=== PATIENT | female | born 2000 | race Caucasian/White ===

== ENCOUNTER 2022-06-10 05:28 | Emergency (ER) | payer OTHER, SELFPAY ==
--- NOTE | ~2022-06-10 | CT_ITS ---
CT IAC/mastoids BI w con DATE: 06/10/2022 06:46 INDICATION: Left mastoid process tenderness. TECHNIQUE: Axial images through the petrous temporal bones. Sagittal and coronal reconstructions. Exam dose: 341.09 mGy-cm total exam DLP. COMPARISON: None FINDINGS: There is an opacified posteromedial left ethmoid air cell. The included paranasal sinuses a re otherwise unremarkable. The right mastoid air cells are well-developed and aerated, without effusions. Patchy mild effusions are noted within a minority of left mastoid air cells, which are otherwise norm ally developed and aerated. No mastoid bone destruction is noted on either side. There is extensive asymmetric soft tissue thickening of the left external auditory canal extending to the tympanic membrane, which may be due to prominent cerumen accumulation or soft tissue mass. There is some asymmetric soft tissue stranding within the left middle ears cavity, which suggests chr onic left otitis media. The auditory ossicles appear intact bilaterally. Right middle ear cavity appears normal. Inner ear apparatus including cochlea, vestibules, semicircular canals, facial nerve canal appear nor mal and symmetric. The internal auditory canals appear symmetric in size and shape. IMPRESSION: Mild patchy left mastoid air cell effusions Prominent asymmetric soft tissue thickening within the left external auditory canal, which may be due to cerumen accumulation or soft tissue mass Likely chronic left otitis media Reviewed, dictated and finalized at [facility] Reviewed, dictated and finalized at [facility] IMPRESSION: Mild patchy left mastoid air cell effusions Prominent asymmetric soft tissue thickening within the left external auditory c anal, which may be due to cerumen accumulation or soft tissue mass Likely chronic left otitis media
[2022-06-10 05:33] VITALS: BP 122/75; PULSE 76; RESP 14; TEMP 36.6; O2SAT 99
--- NOTE | 2022-06-10 05:42 | ED.GENADULT ---
HPI - General Adult General Chief complaint: Ear <Yaya Roberts MD - Last Filed: 06/10/22 07:44> Stated complaint: left ear pain <Yaya Roberts MD - Last Filed: 06/10/22 07:44> Time Seen by Provider: 06/10/22 05:40 <Yaya Roberts MD - Last Filed: 06/10/22 07:44> History of Present Illness HPI narrative: Patient is a 22-year-old female presents emerged department with chief complaint of left ear and mastoid process pain. Patient reports that she was seen in urgent care several days ago started on Augmentin and Ciprodex drops for her left ear. Patient reports that in the last 24 hours she has had decreased hearing out of her left ear and is noticed the pain has gotten worse. Patient reports that it hurts whenever she opens her jaw and whenever she chews. Patient denies shortness of breath <Yaya Roberts MD - Last Filed: 06/10/22 07:44> Related Data Home medications: Home Medications Medication Instructions Recorded Confirmed ciprofloxacin 0.3 %-dexamethasone 4 drp LEFT EAR 06/10/22 06/10/22 0.1 % ear drops,suspension etonogestrel 0.12 mg-ethinyl vag ring vaginal 06/10/22 06/10/22 estradiol 0.015 mg/24 hr vaginal ring (NuvaRing) <Yaya Roberts MD - Last Filed: 06/10/22 07:44> Allergies/adverse reactions: Allergies Allergy/AdvReac Type Severity Reaction Status Date / Time No Known Allergies Allergy Verified 06/10/22 14:07 <Yaya Roberts MD - Last Filed: 06/10/22 07:44> Review of Systems Review of Systems: A 10 system review of systems was completed on the patient and is negative except for what is stated in the HPI. Nursing and ancillary documentation was reviewed. <Yaya Roberts MD - Last Filed: 06/10/22 07:44> PMFSH Past Medical History Medical History: Medical History Tonsillectomy planned 2015 <Yaya Roberts MD - Last Filed: 06/10/22 07:44> Surgical History Surgical History: Surgical History History of placement of ear tubes 1997 <Yaya Roberts MD - Last Filed: 06/10/22 07:44> Family History Family History: Family History Father Heart disease Sibling Heart disease Asthma <Yaya Roberts MD - Last Filed: 06/10/22 07:44> Social History Social History: Social History Smoking status: Never smoker Alcohol intake: never Substance use: never Lack of Transportation: No Lack of Food: Never True Current Housing: I Have Housing Concerned About Future Housing: No Difficulty Paying Gas/Electric Bills: No Difficulty Paying for Meds: No Currently Unemployed: No Education: Bachelor's Degree Difficulty w/ Childcare or Family Care: No <Yaya Roberts MD - Last Filed: 06/10/22 07:44> Exam Narrative: GENERAL: Well-appearing, well-nourished, and in no acute distress. HEAD: Normocephalic, atraumatic. EYES: PERRLA and EOMI. ENT: Nares clear, no rhinorrhea or epistaxis. Mucous membranes moist. Patient has difficulty opening her mouth fully there is tenderness to palpation in the left mastoid area there is debris present in the left auditory canal NECK: Supple. CHEST: Clear to auscultation. No respiratory distress. HEART: Regular rate and rhythm. No murmur heard. Normal peripheral pulses. ABDOMEN: Soft, nontender, nondistended, normal active bowel sounds. EXTREMITIES: Normal range of motion. No edema. SKIN: Warm, dry, no rash. NEURO: No focal deficits. Alert and oriented x3. PSYCH: Normal mood and affect. <Yaya Roberts MD - Last Filed: 06/10/22 07:44> Course Course Emergency Course: Due to the patient recently being treated and having worsening symptoms
[2022-06-10] MEDS: SODIUM CHLORIDE 0.9% IV 1,000 ML 999 ML IV CONT (06:01)
[2022-06-10 06:20] LABS: Basophils Absolute Auto 0.1 K/mm3 (0.0-0.1); Basophils Percent Auto 0.4 % (0.2-1.2); Eosinophils Absolute Auto 0.1 K/mm3 (0-0.3); Eosinophils Percent Auto 0.5 % (0-4.4); Hematocrit 36.6 % (37.0-47.0); Hemoglobin 12.2 g/dL (12.0-15.0); Immature Granulocyte Absolute 0.06 K/mm3 (0.00-0.031); Immature Granulocyte Percent A 0.4 % (0-0.5); Lymphocytes Absolute Auto 1.48 K/mm3 (0.9-3.2); Lymphocytes Percent Auto 10.5 % (18.3-44.2); Mean Corpuscular HGB Conc 33.3 g/dl (32-36); Mean Corpuscular Hemoglobin 33.2 pg (26-34); Mean Corpuscular Volume 99.7 fl (80-100); Mean Platelet Volume 11.9 fl (7.4-10.4); Monocytes Percent Auto 6.8 % (2.6-8.5); Neutrophils Absolute Auto 11.5 K/mm3 (1.3-6.7); Neutrophils Percent Auto 81.4 % (45.5-73.1); Platelet Count Result 200 k/mm3 (150-375); Red Blood Count 3.67 M/mm3 (4.2-5.4); Red Cell Distribution Width 12.2 % (11.5-14.5); White Blood Count 14.2 K/mm3 (4.5-10.0)
[2022-06-10 06:23] LABS: Appearance Urine Slightly Cloudy (Clear); Bilirubin Urine 1+ (Negative); Blood Urine Negative (Negative); Color Urine Yellow (Yellow); Glucose Urine UA Trace mg/dL (Negative); Ketones Urine 2+ mg/dL (Negative); Leukocyte Esterase Ur Negative LEU/UL (Negative); Nitrate Urine Positive (Negative); Protein Urine 2+ mg/dL (Negative); Specific Grav Ur >= 1.030 (1.001-1.035)
[2022-06-10 06:24] LABS: Lactic Acid Reflex 1.3 mmol/L (0.7-2.0)
[2022-06-10 06:29] LABS: Alanine Aminotransferase 16 U/L (6-35); Albumin Level 4.1 g/dL (3.5-5.1); Alkaline Phosphatase 63 U/L (38-126); Anion Gap 7 mmol/L (8-16); Aspartate Amino Transferase 19 U/L (14-36); Bilirubin,Total 0.5 mg/dL (0.2-1.3); Blood Urea Nitrogen 8 mg/dL (7-17); Calcium 8.3 mg/dL (8.4-10.2); Carbon Dioxide 21 mmol/L (22-30); Chloride 110 mmol/L (98-107); Estimated CRCL calculation 106 ml/min; Estimated Glomerular Filt Rate > 60; Glucose 120 mg/dL (65-110); Potassium 3.9 mmol/L (3.4-5.0); Sodium 138 mmol/L (137-145)
[2022-06-10 06:30] LABS: Bacteria Urine 2+ /hpf; Mucus Urine Heavy /lpf; Squamous Epithelial Cell Urine Many /hpf (Few)
[2022-06-10 06:32] LABS: Add Urine Microscopic? YES
[2022-06-10] MEDS: CLINDAMYCIN 600 MG/D5W 50 ML 600 MG/50 ML PIGGYBACK 100 MG IVPB (08:11)
[2022-06-10] MEDS: HYDROcodone/acetaminophen (*CRX) 5-325 MG TABLET 1 TAB PO (08:12)
== END 2022-06-10 08:40 | disposition home or self-care (01) ==
PROVIDERS: Emergency Provider Emergency Medicine; PCP Family Medicine
DX: H66.92 Otitis media, unspecified, left ear (principal); R25.2 Cramp and spasm
CPT/HCPCS: 36415; 70481; 80053; 81001; 81025; 83605; 84145; 85025; 86140; 87040; 87086; 96361; 96365; 99284; A9270; J7030; Q9967